=== PATIENT | female | born 1965 | race Caucasian/White ===

== ENCOUNTER → 2018-12-05 | Outpatient (CLI) | payer OTHER ==
[~2018-12-05] MED LIST: ACYCLOVIR 400400 MG PO; ALBUTEROL2.5 MG/31 INH; ALEVE220 M1 PO; ASPIRIN325 PO; CIPRO500 M1 PO; FISH OIL 1,0001 EAC9 PO; IPRATROPIU0.2 MG/1 M INH; MEDROLDOSEPACK PO; MIRALAX17 GM PO; NORCO 5-325 TA1 EACH PO; PREDNISONE 20 M20 MG PO; PROBIOTIC1 EAC1 PO; VENTOLIN HFA 1818 GM INH; VITAMIN E200 UNI4 PO
== END ==
LOC: CAT 11:25
DX: Z13.6 Encounter for screening for cardiovascular disorders (principal); E78.00 Pure hypercholesterolemia, unspecified; Z82.49 Family history of ischemic heart disease and other diseases of the circulatory system